=== PATIENT | male | born 1985 ===

== ENCOUNTER 2023-04-15 10:53 | Day surgery (SDC) | payer OTHER ==
[2023-04-11 12:57] LABS: HEMATOCRIT 40.5 % (39.0-48.0); HEMOGLOBIN 13.8 g/dL (13-16.00); MEAN CORPUSCULAR HEMOGLOBIN 30.6 pg (27.00-32.0); PLATELET COUNT 322 K/uL (150-450); RED CELL DISTRIBUTION WIDTH 12.9 % (11.5-14.5)
[2023-04-11 12:59] LABS: PH,URINE 5.5 (5.0-8.0); URINE APPEARANCE Clear; URINE BILIRRUBIN Negative (NEGATIVE); URINE BLOOD Negative; URINE COLOR Yellow; URINE GLUCOSE Negative (NEGATIVE); URINE LEUKOCYTE Negative; URINE NITRATE Negative; URINE PROTEIN Negative (NEGATIVE); URINE UROBILINOGEN 0.2 E.U./dl
[2023-04-11 13:02] LABS: URINE EPITHELIAL CELLS 1.6 uL (0.0-38.8)
[2023-04-11 13:04] LABS: URINE BACTERIA 1.2 uL (0.0-1933); URINE RBC 1.7 uL (0.0-20.8); URINE WBC 1.3 uL (0.0-23.2)
[2023-04-11 13:19] LABS: INR 0.96; PROTHROMBIN TIME 10.1 SECONDS (9.0-11.5)
[2023-04-11 13:53] LABS: BILIRUBIN TOTAL 1.18 mg/dL (0.3-1.2); CALCIUM 9.7 mg/dL (8.5-10.1); CREATININE SERUM 0.82 mg/dL (0.70-1.30); GFR 105.72; GLOBULINA 4.1 G/DL (2.4-3.5); POTASSIUM 4.47 mEq/L (3.5-5.1); TOTAL PROTEIN 8.1 gm/dL (6.4-8.2)
[2023-04-15] MEDS ORDERED: CEFAZOLIN SODIUM 1,000 MG VIAL ONE (18:58)
[2023-04-15] MEDS ORDERED: BUPIVACAINE HCL/PF 0.5% 30ML ML ONE (18:58)
== END 2023-04-16 01:55 | disposition home or self-care (01) ==
LOC: CIR.AMB 10:53
PROVIDERS: ATTEND Orthopaedic Surgery Hand Surgery
DX: S63.267A Dislocation of metacarpophalangeal joint of left little finger, initial encounter (principal); S63.295A Dislocation of distal interphalangeal joint of left ring finger, initial encounter; Z20.822 Contact with and (suspected) exposure to COVID-19